=== PATIENT | female | born 1980 | race Caucasian/White ===

== ENCOUNTER 2016-06-19 20:05 | Emergency (ER) | payer SELFPAY ==
[2016-06-19 20:22] VITALS: BP 170/123
== END 2016-06-19 22:34 | disposition left against medical advice (07) ==
LOC: ED 20:05
DX: M54.9 Dorsalgia, unspecified (principal); Z53.21 Procedure and treatment not carried out due to patient leaving prior to being seen by health care provider

== ENCOUNTER 2016-08-28 02:25 | Emergency (ER) | payer SELFPAY ==
[2016-08-28 02:43] VITALS: BP 153/113
== END 2016-08-28 06:00 | disposition left against medical advice (07) ==
LOC: ED 02:25
DX: K13.79 Other lesions of oral mucosa (principal); Z53.21 Procedure and treatment not carried out due to patient leaving prior to being seen by health care provider

== ENCOUNTER 2017-07-01 14:49 | Emergency (ER) | payer OTHER ==
[2017-07-01 14:56] VITALS: BP 138/92
[2017-07-01] MEDS ORDERED: TORADOL IM ONE (16:30)
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
[2017-07-01] MEDS ORDERED: TORADOL ONE (16:31)
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
== END 2017-07-01 19:04 | disposition home or self-care (01) ==
LOC: ED 14:49
DX: M79.1 Myalgia (principal)
CPT/HCPCS: 70450; 72100; 72125; 72170; 96372; 99284; J1885

== ENCOUNTER 2018-05-15 14:00 | Emergency (ER) | payer MEDICAID, OTHER ==
[2018-05-15 14:06] VITALS: BP 138/92
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
[2018-05-15 15:19] LABS: HCG Qualitative,Urine Negative (Negative)
--- NOTE | 2018-05-15 20:45 | Cat Scan Report ---
PROCEDURE: CT HEAD/BRAIN WO CON TECHNIQUE: Computerized tomography of the head was performed without contrast material. HISTORY: headache x 3 days with dizziness COMPARISONS: None . FINDINGS: No CT evidence of intracranial mass, hemorrhage, acute territorial infarction, or hydrocephalus. The intracranial arteries are symmetric in density. Calvarium is intact. Visualized paranasal sinuses and mastoids are aerated. IMPRESSION: No CT evidence of acute abnormality . This document is electronically signed by Lynda Ludwig MD., May 15 2018 04:01:45 PM ET
== END 2018-05-15 15:48 | disposition left against medical advice (07) ==
LOC: ED 14:00
DX: R51 Headache (principal); Z53.21 Procedure and treatment not carried out due to patient leaving prior to being seen by health care provider
CPT/HCPCS: 70450; 81025